=== PATIENT | male | born 1960 | race Caucasian/White ===

== ENCOUNTER 2022-02-06 07:20 | Inpatient (IN) | payer MEDICAID ==
[~2022-02-06] VITALS: Ht 182.9 cm; Wt 102.3 kg
[~2022-02-06 07:20] MED LIST: CYCL-1 PO; IBUP-1985 PO
[2022-02-06] MEDS ORDERED: ondansetron/PF 4mg/2ml inj IV ONE (07:40)
[2022-02-06] MEDS ORDERED: normal saline 1000ML IV soln IVB ONE ×2 (07:40→08:00)
[2022-02-06] MEDS ORDERED: CefTRIAXone 2gm/D5W 50ml BAG 50 ML IV ONE (08:00)
[2022-02-06 08:03] LABS: BASOPHILS # (AUTO) 0.1 X10'3 (0-0.2); BASOPHILS % (AUTO) 0.7 % (0-1); EOSINOPHILS % (AUTO) 0.4 % (0-6); HEMATOCRIT 45.5 % (42.0-52.0); HEMOGLOBIN 15.2 g/dl (14.0-17.9); LYMPHOCYTES # (AUTO) 1.2 X10'3 (1.1-4.8); LYMPHOCYTES % (AUTO) 9.9 % (21-51); MEAN CORPUSCULAR HEMOGLOBIN 30.7 PG (27.0-31.0); MEAN CORPUSCULAR HGB CONC 33.4 g/dL (33.0-36.5); MEAN CORPUSCULAR VOLUME 92.2 FL (78-98); MEAN PLATELET VOLUME 9.5 FL (7.4-10.4); MONOCYTES # (AUTO) 0.4 X10'3 (0-0.9); NEUTROPHILS # (AUTO) 10.4 X10'3 (1.8-7.7); PLATELET COUNT 319 X10'3 (140-440); RED BLOOD COUNT 4.93 X10'6 (4.70-6.10); RED CELL DISTRIBUTION WIDTH 13.6 % (11.5-14.5); WHITE BLOOD COUNT 12.1 X10'3 (4.5-11.0)
[2022-02-06] MEDS ORDERED: azithromycin/NS 500mg/250ml 250 ML IV ONE (08:05)
[2022-02-06] MEDS ORDERED: diphenhydrAMINE 50 mg/ml inj IV ONE (08:30)
[2022-02-06] MEDS ORDERED: metoclopramide 5 mg/ml inj IV ONE (08:30)
[2022-02-06 08:45] LABS: ALANINE AMINOTRANSFERASE 34 U/L (12-78); ALBUMIN 3.9 G/DL (3.4-5.0); ALBUMIN/GLOBULIN RATIO 1.2 (1.1-1.5); ALKALINE PHOSPHATASE 51 IU/L (46-116); ANION GAP 12 (8-16); ASPARTATE AMINO TRANSFERASE 27 U/L (10-37); BILIRUBIN,TOTAL 0.4 MG/DL (0.1-1.0); BLOOD UREA NITROGEN 19 MG/DL (7-18); BUN/CREATININE RATIO 17.4 (5.4-32.0); CALCIUM 8.7 MG/DL (8.5-10.1); CHLORIDE 106 MMOL/L (99-107); CREATININE 1.09 MG/DL (0.60-1.10); GLUCOSE 129 MG/DL (70-104); POTASSIUM 3.6 MMOL/L (3.5-5.1); SODIUM 141 MMOL/L (135-145); TOTAL CARBON DIOXIDE 23.2 MMOL/L (24-32); TOTAL PROTEIN 7.2 G/DL (6.4-8.2); eGFR 69 ML/MIN
[2022-02-06] MEDS ORDERED: aspirin 81mg tab.chew PO ONE (09:00)
[2022-02-06] MEDS ORDERED: morphine 5 MG/ML injection IV ONE (09:25)
[2022-02-06] MEDS ORDERED: morphine 10mg/ml inj. IV ONE (09:35)
[2022-02-06 09:47] LABS: C-REACTIVE PROTEIN < 0.05 MG/DL (0.0-0.5)
[2022-02-06 09:52] LABS: D-DIMER 0.33 MG/L FEU (0-0.50)
[2022-02-06] MEDS ORDERED: acetaminophen 325mg tablet PO PRN (11:20)
[2022-02-06] MEDS ORDERED: magnesium 2GM in 50ml NS 50 ML IV PRN (11:20)
[2022-02-06] MEDS ORDERED: ondansetron/PF 4mg/2ml inj IV PRN (11:20)
[2022-02-06] MEDS ORDERED: magnesium Cl slow-release 64mg tablet PO PRN (11:20)
[2022-02-06] MEDS ORDERED: magnesium 4gm in 100ml NS 100 ML IV PRN (11:20)
[2022-02-06] MEDS ORDERED: morphine 2 MG/ML inj. syringe IV PRN (11:20)
[2022-02-06] MEDS ORDERED: potassium Cl 20 mEq SR tablet PO PRN ×2 (11:20)
[2022-02-06] MEDS ORDERED: potassium CL 10mEq/100ml bag 100 ML IV PRN (11:20)
[2022-02-06] MEDS ORDERED: PERFLUTREN PROTEIN-A MICROSPHR (Optison) 0.22 MG/ML 3ML VIAL IV ONE (11:20)
[2022-02-06] MEDS: normal saline 1000ml 1,000 ML IV SCH (12:04)
[2022-02-06 12:14] LABS: POTASSIUM 4.2 MMOL/L (3.5-5.1)
[2022-02-06] MEDS ORDERED: NO HOME MEDS (12:28)
[2022-02-06] MEDS ORDERED: mag hydrox/Alum hydrox/simeth 30ml oral suspension PO ONE (13:05)
[2022-02-06] MEDS ORDERED: LIDOcaine Viscous 15ml cup MM ONE (13:05)
[2022-02-06] MEDS ORDERED: heparin 10,000 units/1 ML INJ IV ONE (13:55)
[2022-02-06 14:02] LABS: URINE AMPHETAMINE SCREEN NEGATIVE (Neg); URINE BARBITUATE SCREEN NEGATIVE (Neg); URINE BENZODIAZEPINES SCREEN NEGATIVE (Neg); URINE CANNABINOID SCREEN POSITIVE (Neg); URINE COCAINE SCREEN NEGATIVE (Neg); URINE METHADONE SCREEN NEGATIVE (Neg); URINE OPIATE SCREEN NEGATIVE (Neg); URINE PHENCYCLIDINE SCREEN NEGATIVE (Neg)
[2022-02-06 14:36] LABS: APTT 31 SECONDS (22-32)
[2022-02-06] MEDS: heparin 25,000 UNIT/250ml bag 250 ML IV SCH (14:37)
[2022-02-06 15:48] VITALS: BP 142/97
--- NOTE | 2022-02-06 16:00 | NUR ---
received patient from ER via stretcher, patient not in any kind of distress, ambulatory to the bed with iv heparin drip infusing well at his left antecubital site guage 18, hooked to laboratory monitor, vital signs taken and recorded, made comfortable, needs attended. will continue to monitor patient.
--- NOTE | 2022-02-06 18:22 | NUR ---
Problems reprioritized. Patient report given, questions answered & plan of care reviewed with Nicky LINDSAY.
[2022-02-06] MEDS ORDERED: mag hydrox/Alum hydrox/simeth 30ml oral suspension PO PRN (18:25)
--- NOTE | 2022-02-06 18:25 | NUR ---
Patient in room [facility] 3025. I have received report from NEFTALI Frey and had the opportunity to ask questions and assume patient care. Addendum: 02/06/22 at 2000 by Nicky Jensen RN Patient in room [place] [id number]. I have received report from NEFTALI Monteiro and had the opportunity to ask questions and assume patient care.
--- NOTE | 2022-02-06 18:40 | NUR ---
Problems reprioritized. Patient report given, questions answered & plan of care reviewed with Krystal Fish RN.
[2022-02-06 19:00] VITALS: BP 162/100
[2022-02-06] MEDS: K and/or MAG REPLACEMENT MC SCH (19:18)
[2022-02-06] MEDS ORDERED: temazepam 15mg capsule PO PRN (21:00)
--- NOTE | 2022-02-06 21:05 | NUR ---
PAGER ID: [phone] MESSAGE: Jose F Coreas Pat [id number] critical lab value for Troponin I 12 HR is 7217. The previous one was 2502.
[2022-02-06] MEDS: heparin 10,000 units/1 ML INJ IV PRN (21:38)
[2022-02-06] MEDS: pantoprazole 40MG/NS 100ML BAG 100 ML IV SCH (22:46)
[2022-02-06 23:00] VITALS: BP 120/73
--- NOTE | 2022-02-06 23:00 | NUR ---
Patient refused vital signs to be taken at 3am.
[2022-02-07] MEDS: heparin 10,000 units/1 ML INJ IV PRN (05:15)
[2022-02-07 06:00] VITALS: BP 116/83
[2022-02-07 06:20] LABS: BASOPHILS # (AUTO) 0.1 X10'3 (0-0.2); BASOPHILS % (AUTO) 0.6 % (0-1); EOSINOPHILS # (AUTO) 0.1 X10'3 (0-0.9); EOSINOPHILS % (AUTO) 0.4 % (0-6); HEMATOCRIT 42.9 % (42.0-52.0); HEMOGLOBIN 14.4 g/dl (14.0-17.9); LYMPHOCYTES # (AUTO) 2.1 X10'3 (1.1-4.8); LYMPHOCYTES % (AUTO) 15.9 % (21-51); MEAN CORPUSCULAR HEMOGLOBIN 31.2 PG (27.0-31.0); MEAN CORPUSCULAR HGB CONC 33.7 g/dL (33.0-36.5); MEAN CORPUSCULAR VOLUME 92.7 FL (78-98); MEAN PLATELET VOLUME 9.7 FL (7.4-10.4); MONOCYTES % (AUTO) 7.9 % (2-12); NEUTROPHILS # (AUTO) 9.8 X10'3 (1.8-7.7); NEUTROPHILS % (AUTO) 75.2 % (42-75); PLATELET COUNT 286 X10'3 (140-440); RED BLOOD COUNT 4.63 X10'6 (4.70-6.10); RED CELL DISTRIBUTION WIDTH 13.3 % (11.5-14.5)
--- NOTE | 2022-02-07 06:30 | NUR ---
Problems reprioritized. Patient report given, questions answered & plan of care reviewed with NEFTALI Ni.
[2022-02-07 07:57] LABS: ALBUMIN 3.2 G/DL (3.4-5.0); ANION GAP 8 (8-16); BLOOD UREA NITROGEN 10 MG/DL (7-18); BUN/CREATININE RATIO 11.5 (5.4-32.0); CALCIUM 8.2 MG/DL (8.5-10.1); CHLORIDE 108 MMOL/L (99-107); CREATININE 0.87 MG/DL (0.60-1.10); GLUCOSE 105 MG/DL (70-104); MAGNESIUM 1.9 MG/DL (1.5-2.4); POTASSIUM 3.6 MMOL/L (3.5-5.1); SODIUM 138 MMOL/L (135-145); TOTAL CARBON DIOXIDE 22.3 MMOL/L (24-32); eGFR 90 ML/MIN
[2022-02-07] MEDS: K and/or MAG REPLACEMENT MC SCH ×2 (08:00→19:51)
[2022-02-07] MEDS: metoprolol tartrate 25mg tablet PO SCH ×2 (08:33→19:57)
[2022-02-07 08:40] LABS: CHOL/HDL RATIO 3.6 (0.00-4.99); CHOLESTEROL 184 MG/DL (0-200); HDL CHOLESTEROL 51 MG/DL (35-60); LDL CHOLESTEROL 120 MG/DL (50-100); TRIGLYCERIDES 81 MG/DL (20-135)
[2022-02-07] MEDS: heparin 25,000 UNIT/250ml bag 250 ML IV SCH (08:43)
--- NOTE | 2022-02-07 10:04 | NUR ---
pt is constipated.. notified MD if we can get some stool softener for this patient. PAGER ID: [phone] MESSAGE: [phone] F PRESSLEY: doc, patient has been constipated, advised not to strain, he tried several times to go to the toilet but unsuccessful. can we give him lactulose to aid him with his constipation? pls advise.
[2022-02-07] MEDS: lactulose 20gm/30ml cup PO SCH (10:35)
[2022-02-07 11:00] VITALS: BP 133/82
[2022-02-07 15:00] VITALS: BP 123/93
[2022-02-07 18:00] VITALS: BP 126/77
--- NOTE | 2022-02-07 18:26 | NUR ---
Problems reprioritized. Patient report given, questions answered & plan of care reviewed with Lor LINDSAY.
[2022-02-07 22:00] VITALS: BP 127/92
[2022-02-07] MEDS: pantoprazole 40MG/NS 100ML BAG 100 ML IV SCH (22:22)
--- NOTE | 2022-02-07 23:00 | NUR ---
Patient PTT drawn and sent to the lab awaiting results.
[2022-02-08 01:58] LABS: BASOPHILS # (AUTO) 0.1 X10'3 (0-0.2); EOSINOPHILS # (AUTO) 0.1 X10'3 (0-0.9); EOSINOPHILS % (AUTO) 1.3 % (0-6); HEMATOCRIT 43.6 % (42.0-52.0); HEMOGLOBIN 14.9 g/dl (14.0-17.9); LYMPHOCYTES # (AUTO) 3.3 X10'3 (1.1-4.8); MEAN CORPUSCULAR HEMOGLOBIN 31.3 PG (27.0-31.0); MEAN CORPUSCULAR HGB CONC 34.2 g/dL (33.0-36.5); MEAN CORPUSCULAR VOLUME 91.5 FL (78-98); MEAN PLATELET VOLUME 9.8 FL (7.4-10.4); MONOCYTES # (AUTO) 0.9 X10'3 (0-0.9); MONOCYTES % (AUTO) 8.8 % (2-12); NEUTROPHILS # (AUTO) 6.2 X10'3 (1.8-7.7); NEUTROPHILS % (AUTO) 57.9 % (42-75); PLATELET COUNT 290 X10'3 (140-440); RED BLOOD COUNT 4.76 X10'6 (4.70-6.10); RED CELL DISTRIBUTION WIDTH 13.3 % (11.5-14.5); WHITE BLOOD COUNT 10.8 X10'3 (4.5-11.0)
[2022-02-08 02:00] VITALS: BP 125/87
[2022-02-08 02:13] LABS: ALBUMIN 3.5 G/DL (3.4-5.0); ANION GAP 10 (8-16); BLOOD UREA NITROGEN 15 MG/DL (7-18); BUN/CREATININE RATIO 14.6 (5.4-32.0); CALCIUM 9.1 MG/DL (8.5-10.1); CHLORIDE 109 MMOL/L (99-107); CREATININE 1.03 MG/DL (0.60-1.10); GLUCOSE 90 MG/DL (70-104); POTASSIUM 4.3 MMOL/L (3.5-5.1); SODIUM 142 MMOL/L (135-145); TOTAL CARBON DIOXIDE 22.7 MMOL/L (24-32); eGFR 74 ML/MIN
[2022-02-08 02:23] LABS: MAGNESIUM 2.1 MG/DL (1.5-2.4)
--- NOTE | 2022-02-08 03:00 | NUR ---
PTT results came back at 30. Per Linda nursing manufacturing shift supervisor hang the new bag of heparin and decrease the rate to 1300 units per protocol and have lab redraw PTT at 0500.
[2022-02-08 03:59] LABS: PLATELET ESTIMATE NORMAL; TOTAL CELLS COUNTED 100
--- NOTE | 2022-02-08 05:35 | NUR ---
lab results came back with ptt of 115 abnormally high. Heparin stopped for 120 minutes per protocol and lab to be repeated within 2 hours.
[2022-02-08 06:00] VITALS: BP 114/81
--- NOTE | 2022-02-08 06:05 | NUR ---
Patient in room [facility] 3025. I have received report from Lor LINDSAY and had the opportunity to ask questions and assume patient care.
--- NOTE | 2022-02-08 06:30 | NUR ---
Patient in room [facility] 3025. I have received report from NEFTALI Horowitz and had the opportunity to ask questions and assume patient care.
--- NOTE | 2022-02-08 06:46 | NUR ---
Problems reprioritized. Patient report given, questions answered & plan of care reviewed with Donnie.
[2022-02-08] MEDS: metoprolol tartrate 25mg tablet PO SCH (07:35)
[2022-02-08] MEDS: lactulose 20gm/30ml cup PO SCH (07:40)
[2022-02-08] MEDS: heparin 10,000 units/1 ML INJ IV PRN (07:42)
[2022-02-08] MEDS ORDERED: atorvastatin 20mg tablet PO SCH (08:00)
[2022-02-08] MEDS: K and/or MAG REPLACEMENT MC SCH (08:00)
[2022-02-08] MEDS ORDERED: nitroGLYCERIN 0.4mg SUBLingual tab SL PRN (08:45)
[2022-02-08] MEDS ORDERED: regadenoson 0.4mg/5ml syringe IV PRN (08:45)
[2022-02-08] MEDS ORDERED: aminophylline 500mg/20ml vial IV PRN (08:45)
[2022-02-08] MEDS ORDERED: metoprolol tartrate 1mg/ml inj IV PRN (08:45)
[2022-02-08] MEDS ORDERED: ALPRAZolam 0.25mg tablet PO PRN (10:30)
[2022-02-08] MEDS ORDERED: temazepam 15mg capsule PO PRN (10:30)
[2022-02-08] MEDS ORDERED: ALPRAZolam 0.5mg tablet PO PRN (10:30)
[2022-02-08 11:00] VITALS: BP 141/93
[2022-02-08] MEDS: normal saline 1000ml 1,000 ML IV SCH (11:20)
[2022-02-08] MEDS ORDERED: NITR0.4T51 SL (14:43)
[2022-02-08] MEDS ORDERED: ATOR20TA66 PO (14:43)
[2022-02-08] MEDS ORDERED: PANT40SU2 PO (14:43)
--- NOTE | 2022-02-08 15:45 | NUR ---
[place] documentation: I have reviewed and agree with all interventions, assessments performed and documented by Virginia Ch RN.
--- NOTE | 2022-02-08 15:50 | NUR ---
Pt discharged to home from the hospital. All discharge information reviewed and signed with the assistance of this health technical writer. All questions were answered. PIV and telemetry removed prior to discharge. No home medications were to be returned to the patient. Discharge medications sent to the patient's preferred pharmacy.
== END 2022-02-08 15:52 | disposition home or self-care (01) | DRG 190 ==
LOC: ER 07:21 → ED HOLD 11:23 → PCU 3S 15:42
PROVIDERS: ADMIT Internal Medicine; ATTEND Internal Medicine
DX: I21.4 Non-ST elevation (NSTEMI) myocardial infarction (principal); F12.90 Cannabis use, unspecified, uncomplicated; Z20.822 Contact with and (suspected) exposure to COVID-19; J40 Bronchitis, not specified as acute or chronic; K59.00 Constipation, unspecified; K80.20 Calculus of gallbladder without cholecystitis without obstruction; Z87.891 Personal history of nicotine dependence; Z89.022 Acquired absence of left finger(s); Z89.021 Acquired absence of right finger(s); Z88.0 Allergy status to penicillin; Z86.718 Personal history of other venous thrombosis and embolism
CPT/HCPCS: 36415; 71045; 76700; 80048; 80053; 80061; 80305; 82150; 83605; 83690; 83735; 83880; 84132; 84145; 84484; 85007; 85025; 85379; 85610; 85730; 86140; 87040; 87635; 93005; 93306; 96361; 96365; 96366; 96367; 96375; 97161; 97530; 99285; C9113; C9803; G0378; J0456; J0696; J1200; J1644; J2274; J2405; J2765; J7030